=== PATIENT | male | born 1970 | race Caucasian/White ===

== ENCOUNTER 2022-05-10 16:58 | Outpatient (CLI) | payer OTHER, SELFPAY ==
[2022-05-10 17:17] LABS: Influenza Type A Negative (Negative); Influenza Type B Negative (Negative)
== END 2022-05-10 16:59 | disposition home or self-care (01) ==
LOC: LKVREF 16:58
PROVIDERS: Visit Provider Family Medicine
DX: U07.1 COVID-19 (principal); R50.9 Fever, unspecified
CPT/HCPCS: 87804

== ENCOUNTER 2024-08-01 23:29 | Emergency (ER) | payer OTHER, SELFPAY ==
--- OUTSIDE RECORDS SUMMARY | 2024-08-01 23:32 | XMS_ITS | Clinical Summary ---
Author Organization [employer] Address [address] [place] [address] Care Team Providers Care Environmental Permitting Specialist Name Role Phone Chan Lorenzo Primary Care Provider [phone] Source Comments You are receiving this document as you are listed as the primary care provider,follow-up provider, or the patient has been referred to you for consultation.This is in compliance with the Medicare and[facility] EHR Incentive Program,which states Providers who transition their patient to another setting of careor provider of care or refers their patient to another provider of care shouldprovide summary care record for each transition of care or referral. [facility] Allergies Active Allergy Reactions Criticality Noted Date Comments Buprenorphine Anxiety,Other, see comments,Palpitations 06/20/2020 Prochlorperazine Anxiety 01/25/2020 Cyclobenzaprine Anxiety 01/17/2019 Gabapentin Anxiety 08/01/2019 Hydrocodone-Acetaminophen Nausea And Vomiting,Nausea 08/01/2014 Medications Medication Sig Dispensed Refills Start Date End Date Status citalopram (CELEXA) 10 MG tablet Take 10 mg by mouth daily. Active clonazePAM (KLONOPIN) 0.5 MG tablet Take 1 Tablet (0.5 mg) by mouth two times daily as needed for Anxiety (associated with neck pain). Active acetaminophen (TYLENOL) 325 MG tablet Take 2 Tablets by mouth every 4 hours as needed for Pain. 40 Tablet 02/29/2020 Active ondansetron (ZOFRAN) 8 MG tablet Take 1 Tablet by mouth every 8 hours as needed for Nausea. 20 Tablet 02/29/2020 Active Additional Information Patient not taking.Reported on 09/06/2023 lidocaine (ASPERCREAM) 4 % patch Apply 1 Patch to skin daily. Leave on for up to 12 hours in a 24 hour period, then remove. 3 Patch 11/23/2020 Active sildenafil (VIAGRA) 100 MG tablet 1/2 to 1 tab take 30min to 4 hours before sexual activity. Max 100mg/24hr. 07/30/2020 Active traMADol (ULTRAM) 50 MG tablet TAKE 1-2 TABLETS BY MOUTH EVERY DAY AFTER PT/EXERCISE NEEDED FOR PAIN 11/06/2020 Active Meloxicam (MOBIC) 15 MG tablet Take 1 Tablet by mouth daily. 15 Tablet 02/05/2021 Active Additional Information Patient not taking.Reported on 09/06/2023 busPIRone (BUSPAR) 5 MG tablet Take 5 mg by mouth two times a day. 07/10/2021 Active sertraline (ZOLOFT) 50 MG tablet Take 1/2 tab for 1 week increase to 1 tab from 2nd week 09/18/2021 Active acetaminophen-codei ne (TYLENOL NO. 3) 300-30 MG tablet SMARTSI Tablet(s) By Mouth 1 to 3 Times Daily PRN 07/16/2021 Active diazePAM (VALIUM) 5 MG tablet Take 1 Tablet (5 mg) by mouth every 6 hours as needed for Muscle Spasms. 15 Tablet 09/30/2021 Active LORazepam (ATIVAN) 1 MG tablet Take 1 Tablet (1 mg) by mouth two times a day. Active Active Problems Problem Noted Date Diagnosed Date Mechanical low back pain 02/26/2019 Neck pain 02/26/2019 Immunizations Name Administration Dates Next Due Flu Vac (3+ yrs) 06/21/2003 Social History Tobacco Use Types Packs/Day Years Used Date Smoking Tobacco: Never Smokeless Tobacco: Never Alcohol Use Standard Drinks/Week Comments No 0 (1 standard drink = 0.6 oz pur e alcohol) Sex and Gender Information Value Date Recorded Sex Assigned at Not on file Gender Identity Not on file Sexual Orientation Not on file Last Filed Vital Signs Vital Sign Reading Time Taken Comments Blood Pressure 148/95 09/06/2023 4:58 PM DIRECTOR PRIVATE Pulse 77 09/06/2023 4:58 PM DIRECTOR PRIVATE Temperature 36.4 C (97.5 F) 09/06/2023 3:41 PM DIRECTOR PRIVATE Respiratory Rate 18 09/06/2023 3:41 PM DIRECTOR PRIVATE Oxygen Saturation 97% 09/06/2023 4:58 PM DIRECTOR PRIVATE Inhaled Oxygen Concentration - - Weight - - Height - - Body Mass Index - - Plan of Treatment Health Maintenance Due Date Last Done Comments Colon Cancer Screening Plan Due 1971 Hep C Screening (Preventive Services) 1971 PSA Screening Discussion 1971 HIV Screening (Preventive Services) 1987 HepB (1) 1990 Adult Preventive Visit 03/17/2002 03/17/2001 Cholesterol 03/17/2006 03/17/2001 Zoster/Shingles (1 of 2) 2021 COVID-19 Vaccine (3 - season) 2024 10/03/2020, 09/05/2020 Influenza (#1) 2024 03/30/2023, 06/10, 04/20/2019, Additional history exists DTaP/Tdap/Td (2 - Tdap) 10/15/2025 10/16/2015 HepA Aged Out No longer eligi ble based on patient's age to complete this topic Hib Aged Out No longer eligi ble based on patient's age to complete this topic IPV (Polio) Aged Out No longer eligi ble based on patient's age to complete this topic MCV4 Aged Out No longer eligi ble based on patient's age to complete this topic Pneumococcal Aged Out No longer eligi ble based on patient's age to complete this topic Procedures Procedure Name Priority Date/Time Associated Diagnosis Comments CHOLESTEROL (TOTAL) Routine 03/17/2001 1 0:57 AM CDT from Last 3 Months or Most Recently Relevant to Health Maintenance Results * CHOLESTEROL (TOTAL) (03/17/2001 10:57 AM CDT) Cholesterol 141 <200 mg/dl [facility] 03/17/2001 10:5 7 AM CDT 03/17/2001 3:15 PM CDT Alicia Bellamy MD LAB_1 [place], [place] [phone] from Last 3 Months or Most Recently Relevant to Health Maintenance Care Teams Environmental Permitting Specialist Relationship Specialty Start Date End Date Chan Lorenzo MBBS [address] [place] [address] PCP - General Internal Medicine 01/30/19
--- OUTSIDE RECORDS SUMMARY | 2024-08-01 23:32 | XMS_ITS | Referral Summary ---
Author Organization [facility] Address [address] [facility] [address] Care Team Providers Care Portrait Artist Name Role Phone Amber, Mechelle Dai Primary Care Provider Allergies Active Allergy Reactions Criticality Noted Date Comments Buprenorphine Anxiety,Other (See Comments),Palpitations,Shor tness Of Breath High 06/20/2020 Compazine Anxiety Low 07/05/2012 Cyclobenzaprine Nausea,GI Disturbance 5 Gabapentin Anxiety Low 08/01/2019 Hydrocodone-Acetaminophen Nausea,GI Disturbance 12/05/2014 Medications ALPRAZolam (XANAX PO)Indications:ta ke .5mg daily Take 2 mg by mouth daily Active CITALOPRAM HYDROBROMIDE POIndications:estephania e 1/2 tablet Take 20 mg by mouth daily Active Naproxen Sodium (ALEVE PO) Active oxyCODONE-acetami nophen (PERCOCET) 5-325 MG per tablet Take 1-2 tablets by mouth every 6 hours as needed for pain 8 tablet 0 5 Active oxyCODONE-acetami nophen (PERCOCET) 5-325 MG tablet Take 1-2 tablets by mouth every 4 hours as needed for pain 12 tablet 1 Active methocarbamol (ROBAXIN) 500 MG tablet Take 1 tablet (500 mg) by mouth 4 times daily 20 tablet 2 Active predniSONE (DELTASONE) 20 MG tablet Take two tablets (= 40mg) each day for 5 (five) days 10 tablet 2 Active diazepam (VALIUM) 5 MG tablet Take 1 tablet (5 mg) by mouth every 8 hours as needed for muscle spasms or pain 15 tablet 2 Active ketorolac (TORADOL) 10 MG tablet Take 1 tablet (10 mg) by mouth every 6 hours as needed for moderate pain (4-6) 20 tablet 2 Active Active Problems Problem Noted Date Diagnosed Date Cervical strain, initial encounter 11/20/2021 Neck pain 07/05/2012 ABSCESS BUTTOCK 02/03/2007 Immunizations Name Administration Dates Next Due TD,PF 7+ (Tenivac) 09/16/2004 Social History Tobacco Use Types Packs/Day Years Used Date Smoking Tobacco: Never Assessed Alcohol Use Standard Drinks/Week Comments No 0 (1 standard drink = 0.6 oz pur e alcohol) Adolescent Education Answer Date Record ed Getting School Help Needed Not on file 04/08 Sex and Gender Information Value Date Recorded Sex Assigned at Not on file 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 [employer] Gender Identity Not on file Sexual Orientation Not on file 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 Not on fi le Not on file Last Filed Vital Signs Vital Sign Reading Time Taken Comments Blood Pressure 136/107 07/04/2022 2:07 PM [employer] Pulse 81 07/04/2022 2:07 PM [employer] Temperature 36.5 C (97.7 F) 07/04/2022 3:46 PM [employer] Respiratory Rate 18 07/04/2022 2:07 PM [employer] Oxygen Saturation 92% 07/04/2022 4:32 PM [employer] Inhaled Oxygen Concentration - - Weight 106.6 kg (235 lb) 07/04/2022 2:07 PM [employer] Height 188 cm (6' 2) 03/03/2021 9:17 PM CDT Body Mass Index 30.17 03/03/2021 9:17 PM CDT Plan of Treatment Not on file Procedures Procedure Name Priority Date/Time Associated Diagnosis Comments CL AFF A.M.A. LIPID PANEL Routine 09/16/2004 8:36 AM SP[employer] M[employer] Routine Medical Exam BASIC METABOLIC PANEL Routine 07/16/2004 4:45 PM [employer] from Last 3 Months or Most Recently Relevant to Health Maintenance Results * (ABNORMAL) A.M.A. LIPID PANEL (09/16/2004 8:36 AM [employer]) Cholesterol 140 0 - 200 mg/dL [facility] Comment: Cholesterol Reference Range: <200 The NCEP recommends further evaluation of: 1. Patients with cholesterol greater than 200 mg/dL if additional risk factors are present. 2. All patients with a cholesterol greater than 240 mg/dL. Triglycerides 104 0 - 150 mg/dL [facility] HDL Cholesterol 37(L) >40 mg/dL [facility] LDL Cholesterol Calculated 82 0 - 129 mg/dL [facility] VLDL-Cholesterol 21 0 - 30 mg/dL [facility] Cholesterol/HDL Ratio 3.8 0.0 - 5.0 [facility] 09/16/2004 8:36 AM [employer] 09/16/2004 8:37 AM [employer] Massiel Marcos MD LABORATORY Final Result [facility] [address] [place] [address] * (ABNORMAL) Basic metabolic panel (07/16/2004 4:45 PM [employer]) Sodium 141 133 - 144 mmol/L [facility] Potassium 3.6 3.4 - 5.3 mmol/L [facility] Chloride 105 94 - 109 mmol/L [facility] Carbon Dioxide 26 20 - 32 mmol/L [facility] Glucose 111(H) 60 - 110 mg/dL [facility] Urea Nitrogen 19 5 - 24 mg/dL [facility] Creatinine 0.93 0.80 - 1.50 mg/dL [facility] GFR Estimate >80 >60 mL/min/1.7 m2 [facility] GFR Estimate If Black >80 >60 mL/min/1.7 m2 [facility] Calcium 9.1 8.5 - 10.4 mg/dL [facility] Anion Gap 10 6 - 17 mmol/L [facility] 07/16/2004 4:45 PM [employer] 07/16/2004 4:53 PM [employer] us Physician No Ref-Primary LAB - BLOOD ORDERABLES Final Result [facility] from Last 3 Months or Most Recently Relevant to Health Maintenance Insurance [facility] Care Teams Portrait Artist Relationship Specialty Start Date End Date [address] [address] PCP - General 06/16/15
--- OUTSIDE RECORDS SUMMARY | 2024-08-01 23:32 | XMS_ITS | Clinical Summary ---
Author Organization [facility] Address [address] [facility] [address] Care Team Providers Care Crib Clerk Name Role Phone Clinic, Mechelle Dai Primary Care Provider Allergies Active [...] Dates Next Due TD,PF 7+ (Tenivac) 09/16/2004 Family History Medical History Relation Comments Diabetes Maternal Grandmother Breast Cancer No family hx of Cancer - colorectal No family hx of Cerebrovascular Disease No family hx of Heart Disease No family hx of Hypertension No family hx of Lipids No family hx of Osteoporosis No family hx of Prostate Cancer No family hx of Thyroid Disease No family hx of Relation Status Comments Father Alive Maternal Grandfather Maternal Grandmother Mother Alive Paternal Grandfather Paternal Grandmother Sister 1 Alive Sister 2 Alive Social History Tobacco Use Types Packs/Day Years Used Date Smoking Tobacco: Never Assessed Alcohol Use Standard Drinks/Week Comments No 0 (1 standard drink = 0.6 oz pur e alcohol) Adolescent Education Answer Date Record ed Getting School Help Needed Not on file 04/08 Sex and Gender Information Value Date Recorded Sex Assigned at Not on file Legal Sex Male 4:35 AM OUTBOUND TELEMARKETER Gender Identity Not on file Sexual Orientation Not on file 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 Not on fi le Not on file Last Filed Vital Signs Vital Sign Reading Time Taken Comments Blood Pressure 136/107 07/04/2022 2:07 PM OUTBOUND TELEMARKETER Pulse 81 07/04/2022 2:07 PM OUTBOUND TELEMARKETER Temperature 36.5 C (97.7 F) 07/04/2022 3:46 PM OUTBOUND TELEMARKETER Respiratory Rate 18 07/04/2022 2:07 PM OUTBOUND TELEMARKETER Oxygen Saturation 92% 07/04/2022 4:32 PM OUTBOUND TELEMARKETER Inhaled Oxygen Concentration - - Weight 106.6 kg (235 lb) 07/04/2022 2:07 PM OUTBOUND TELEMARKETER Height 188 cm (6' 2) 03/03/2021 9:17 PM CDT Body Mass Index 30.17 03/03/2021 9:17 PM CDT Plan of Treatment Health Maintenance Due Date Last Done Comments ADVANCE CARE PLANNING 1971 ANNUAL REVIEW OF HM ORDERS 1971 CT COLONOGRAPHY 1971 FIT 1971 FLEX SIG 1971 sDNA (Cologuard) 1971 COLONOSCOPY 1981 COLORECTAL CANCER SCREENING 1981 HIV SCREENING 1986 HEPATITIS C SCREENING 1989 HEPATITIS B IMMUNIZATION (1 of 3 - 19+ 3-dose series) 1990 YEARLY PREVENTIVE VISIT 09/16/2005 09/16/2004, 03/17 GLUCOSE 07/16/2007 07/16/2004 LIPID 09/16/2009 09/16/2004 Pneumococcal Vaccine: 50+ Years (1 of 1 - PCV) 2021 ZOSTER IMMUNIZATION (1 of 2) 2021 COVID-19 Vaccine (3 - season) 2024 10/03/2020, 09/05/2020 INFLUENZA VACCINE (#1) 2024 , 04/20/2019, 03/16/2017, Additional history exists PHQ-2 (once per calendar year) 2024 DTAP/TDAP/TD IMMUNIZATION (2 - Td or Tdap) 10/15/2025 10/16/2015, 09/16/2004 RSV VACCINE (1 - 1-dose 75+ series) 2046 HPV IMMUNIZATION Aged Out No longer e ligible based on patient's age to complete this topic MENINGITIS IMMUNIZATION Aged Out No l onger eligible based on patient's age to complete this topic RSV MONOCLONAL ANTIBODY Aged Out No l onger eligible based on patient's age to complete this topic Procedures Procedure Name Priority Date/Time Associated Diagnosis Comments CL AFF A.M.A. LIPID PANEL Routine 09/16/2004 8:36 AM OUTBOUND TELEMARKETER Routine Medical Exam BASIC METABOLIC PANEL Routine 07/16/2004 4:45 PM OUTBOUND TELEMARKETER from Last 3 Months or Most Recently Relevant to Health Maintenance Results * (ABNORMAL) A.M.A. LIPID PANEL (09/16/2004 8:36 AM OUTBOUND TELEMARKETER) Cholesterol 140 0 - 200 mg/dL [facility] Comment: Cholesterol Reference Range: <200 The NCEP recommends further evaluation of: 1. Patients with cholesterol greater than 200 mg/dL if additional risk factors are present. 2. All patients with a cholesterol greater than 240 mg/dL. Triglycerides 104 0 - 150 mg/dL [facility] HDL Cholesterol 37(L) >40 mg/dL [facility] LDL Cholesterol Calculated 82 0 - 129 mg/dL [facility] VLDL-Cholesterol 21 0 - 30 mg/dL [facility] Cholesterol/HDL Ratio 3.8 0.0 - 5.0 [facility] 09/16/2004 8:36 AM OUTBOUND TELEMARKETER 09/16/2004 8:37 AM OUTBOUND TELEMARKETER Massiel Marcos MD LABORATORY Final Result [facility] [address] [place] [address] * (ABNORMAL) Basic metabolic panel (07/16/2004 4:45 PM OUTBOUND TELEMARKETER) Pathologist [facility] Sodium 141 133 - 144 mmol/L [facility] [...] - 17 mmol/L [facility] 07/16/2004 4:45 PM OUTBOUND TELEMARKETER 07/16/2004 4:53 PM OUTBOUND TELEMARKETER us Physician No Ref-Primary LAB - BLOOD ORDERABLES Final Result [facility] from Last 3 Months or Most Recently Relevant to Health Maintenance Insurance [facility] Care Teams Crib Clerk Relationship Specialty Start Date End Date [facility] [address] [place], [place] [id number] PCP - General 06/16/15
--- OUTSIDE RECORDS SUMMARY | 2024-08-01 23:32 | XMS_ITS | Clinical Summary ---
Author Organization [employer] [facility] Address [place], [place] [address] Care Team Providers Care Avionics Installer Name Role Phone Unavailable Primary Care Provider Unavailabl e Allergies Active Allergy Reactions Criticality Noted Date Comments Buprenorphine Hcl Shortness Of Breath,Anxiety,Palp itations,Insomnia 06/20/2020 Prochlorperazine Emotional Disturbance,Other - Describe In Comment Field 05/07/2010 Makes him feel crazy Makes him feel crazy Compazine Cyclobenzaprine Anxiety 01/17/2019 Gabapentin Anxiety 08/01/2019 Hydrocodone-Acetaminophen *Unknown,Nause a Only 08/01/2014 Medications sildenafil citrate (VIAGRA) 100 mg tabletIndications: Erectile dysfunction, unspecified erectile dysfunction type 1/2 to 1 tab take 30min to 4 hours before sexual activity. Max 100mg/24hr. 20 Tablet 3 3 Active traMADoL (ULTRAM) 50 mg tabletIndications: Chronic left shoulder pain,Chronic neck and back pain Take 1 Tablet (50 mg) by mouth three times daily. 60 Tablet 3 Active ondansetron (ZOFRAN ODT) 4 mg disintegrating tabletIndications: Vomiting and diarrhea Place 1 Tablet (4 mg) on the tongue every 8 hours if needed for Nausea/Vomi ting. 12 Tablet 4 Active LORazepam 1 mg tabletIndications: Generalized anxiety disorder,Panic disorder Take 1 Tablet (1 mg) by mouth 2 times daily if needed for Anxiety. 60 Tablet 1 5 Active sertraline (ZOLOFT) 100 mg tabletIndications: Generalized anxiety disorder,Panic disorder,Depressiv e disorder Take 1.5 Tablets (150 mg) by mouth once daily. 45 Tablet 1 5 Active LORazepam 1 mg tabletIndications: Generalized anxiety disorder,Panic disorder Take 1 Tablet (1 mg) by mouth 2 times daily if needed for Anxiety. 60 Tablet 1 4 07/30/19 25 Discontin ued(Reord er (E-cancel not sent)) sertraline (ZOLOFT) 100 mg tabletIndications: Generalized anxiety disorder,Panic disorder,Depressiv e disorder Take 1.5 Tablets (150 mg) by mouth once daily. 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 03/26/2020 Scapular dyskinesis 03/26/2020 Status post cervical spinal fusion C4/5 03/26/20 20 s/p Left shoulder arthroscop ic limited subacromial debridement and partial AC joint resection DOS 09/12/2019 by Ami Ness MD 03/26/2020 Depression 06/07/2017 Controlled substance agreement signed 03/16/2017 PTSD (post-traumatic stress disorder) 10/14/2014 Anxiety 08/01/2014 Radiculopathy of arm 06/25/2010 Resolved Problems Problem Noted Date Diagnosed Date Resolved Date Depressive disorder 11/11/2021 03/25/20 23 Generalized anxiety disorder 11/11/2021 03/25/2023 Anxiety, generalized 02/23/2021 023 Panic disorder 02/23/2021 03/25/2023 COVID-19 virus infection 02/22/2021 Neck pain 03/26/2020 03/25/2023 Chronic left shoulder pain 03/26/2020 0 03/25/2023 Early osteoarthritis of left shoulder 03/26/2020 03/25/2023 Shoulder impingement syndrome, left 08/02/2019 03/25/2023 S/P cervical spinal fusion 06/19/2010 0 03/25/2023 Encounters Date Type Department Care Team Description 06/20/2024 11:30 AM [facility]ARE [facility]IAISON Telemedicine [facility] [address] [place] [address] Keyona Saavedra MD Telehealth 06/20/2024 Travel from Last 3 Months Immunizations Name Administration Dates Next Due COVID-19 vaccine (Moderna 100mcg/0.5mL) PF MDV 10/03/2020,09/05/2020 Influenza, IIV4 03/30/2023,,04/20/2019,03/16,04/23/2016 Td, Preservative Free (age > = 7 Years) 09/16/2004 Tdap 10/16/2015 10/15/2025 Family History Medical History Relation Name Comments Hypertension Father Hypertension Maternal Grandfather Diabetes Maternal Grandmother Other Mother psoriasis Other Other No FH of cancer Hypertension Paternal Grandfather Relation Name Status Comments Father Alive Maternal Grandfather Maternal Grandmother Mother Alive Other Paternal Grandfather Social History Tobacco Use Types Packs/Day Years Used Date Smoking Tobacco: Never Smokeless Tobacco: Never Tobacco Cessation:Counseling Given: No Alcohol Use Standard Drinks/Week Comments No 0 (1 standard drink = 0.6 oz pur e alcohol) PHQ-2 Answer Date Recorded PHQ-2 TOTAL SCORE 2 03/26/2024 Social Connections Answer Date Recorded Frequency of Communication with Friends and Fami ly 0 04/10/2023 Financial Resource Strain Answer Date R ecorded Difficulty of Paying Living Expenses 3 04/10/2023 Difficulty of Paying Living Expenses Not on file 04/10/2023 Food Insecurity Answer Date Recorded Worried About Running Out of Food in the Last Ye ar 1 04/10/2023 Transportation Needs Answer Date Record ed Lack of Transportation (Medical) 1 04/10/2023 Housing Stability Answer Date Recorded Unable to Pay for Housing in the Last Year 1 04/10/2023 Sex and Gender Information Value Date Recorded Sex Assigned at Not on file Legal Sex Male 6:20 AM HEALTHCARE LIAISON Gender Identity Not on file Sexual Orientation Not on file 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 Not on file Not on file Obstetrics History Last Filed Vital Signs Vital Sign Reading Time Taken Comments Blood Pressure 130/87 02/26/2024 2:17 PM CDT Pulse 92 02/26/2024 2:17 PM CDT Temperature 36.9 C (98.5 F) 02/26/2024 2:17 PM CDT Respiratory Rate 24 02/26/2024 2:17 PM CDT Oxygen Saturation 97% 02/26/2024 2:17 PM CDT Inhaled Oxygen Concentration - - Weight 117.9 kg (260 lb) 12/08/2023 3:12 PM CDT Height 188 cm (6' 2) 12/08/2023 3:12 PM CDT Body Mass Index 33.38 12/08/2023 3:12 PM CDT Plan of Treatment Upcoming Encounters Date Type Department Care Team (Late st Contact Info) Description 08/20/2024 1:00 PM [facility]ALTHCARE LIAISON Telemedicine [address] [phone] Keyona Saavedra MD [address] [place] [address] [phone] 09/04/2024 9:30 AM HEALTHCARE LIAISON Office Visit [address] [phone] Keyona Saavedra MD [address] [place] [address] [phone] Health Maintenance Due Date Last Done Comments Colonoscopy through age 75 08/27/2020 08/27/2013 Pneumococcal series for age 50+ (1 of 1 - PCV) 2021 Zoster (shingles) series for age 50+ (1 of 2) 2021 COVID-19 vaccine series ( - season) 2024 10/03/2020, 09/05/2020 Influenza for age 50-64 03/11/2024 03/30/20 23, 06/26/2021, 04/20/2019, Additional history exists BMI (ht and wt on same day) for age 18+ 12/07/2024 12/08/2023, 08/18/2023, 04/10/2023, Additional history exists Depression screening for age 12+ 03/27/2025 03/27/2024, 03/26/2024, 02/07/2024, Additional history exists Tetanus booster 10/15/2025 10/16/2015, 09/16/2004 Lipids for age 45-75 03/30/2028 03/30/2023, 09/02/2017, 10/16/2015, Additional history exists Tdap Completed 10/16/2015 HIV for age 15-65 Completed 03/30/2023 Hepatitis C screening for ag e 18-79 Completed 03/30/2023 Goals Goal Patient Goal Type Associated Problems Recent Progress Patient-Stated? Author BLOOD PRESSURE - MAINTAINS BP less than 140/90 Blood Pressure Rachel Ceron MD Medical Devices Implanted Type Area Stile Ripsaw Operator Device Identifier Shelf Expiration Date Model / Serial / Lot [employer] Lasr [id number] Fee - [id number] Implanted:Qty: 1 on 05/08/2010 at [facility] [employer] 11/26/2012 [id number]# / / [id number] Description:c4 - c5 Plate Gcp 25mm W/Beads [employer] - [id number] Implanted:Qty: 1 on 05/08/2010 at [facility] [employer] 11/07/2012 [id number] 5# / / [id number] Screw Gcp 3mmx13 W/Beads - [id number] Implanted:Qty: 3 on 05/08/2010 at [facility] [employer] 04/09/2013 [id number] 3# / / [id number] Screw Gcp 3mmx13 W/Beads - [id number] Implanted:Qty: 1 on 05/08/2010 at [facility] [employer] 11/08/2012 [id number] 3# / / [id number] Procedures Procedure Name Priority Date/Time Associated Diagnosis Comments ANTI HIV 1/2 Routine 03/30/2023 8:36 AM CDT Health care maintenance ANTI HCV Routine 03/30/2023 8:36 AM CDT Health care maintenance LIPID PANEL W REFLEX MEASURED LDL Routine 03/30/2023 8:36 AM CDT Health care maintenance SCAN-COLONOSCOPY 08/27/2013 12:0 0 AM HEALTHCARE LIAISON from Last 3 Months or Most Recently Relevant to Health Maintenance Results * (ABNORMAL) LIPID PANEL W REFLEX MEASURED LDL (03/30/2023 8:36 AM CDT) CHOLESTEROL,TOTAL 165 100 - 199 mg/dL 03/30/2023 1:33 PM CDT [facility] Comment: Cholesterol, Total Reference Ranges Desirable <200 mg/dL Borderline 200-239 mg/dL High >=240 mg/dL TRIGLYCERIDES 85 <150 mg/dL 03/30/2023 1:33 PM CDT [facility] HDL CHOLESTEROL 39(L) >40 mg/dL 1:33 PM CDT [facility] NON-HDL CHOLESTEROL 126 <145 mg/dl 03/30/2023 1:33 PM CDT [facility] CHOL/HDL RATIO 4.23 <4.50 03/30/2023 1:33 PM CDT [facility] LDL CHOLESTEROL 109 <=130 mg/dL 03/30/2023 1:33 PM CDT [facility] VLDL CHOLESTEROL 17 <=30 mg/dL 03/30/2023 1:33 PM CDT [facility] PROVIDER ORDERED STATUS FASTING 03/30/2023 1:33 PM CDT [facility] Blood BLOOD SPECIMEN / Unknown Venipuncture / Unknown 03/30/2023 8:36 AM CDT 03/30/2023 8:40 AM CDT Chan RINCON CHEMISTRY Final Resul t [facility] [address] [place] [address], * ANTI HCV (03/30/2023 8:36 AM CDT) HEPATITIS C ANTIBODY Non-Reacti ve Non-React jessica 03/31/2023 9:21 AM CDT [facility] Comment:Please note, per www .CDC.gov: If a patient is known to be at high risk of HCV infection, or is symptomatic, and the physician's suspicion of HCV infection is high, HCV RNA testing is often employed and is of diagnostic value, even after an initial negative anti-HCV test result. Blood BLOOD SPECIMEN / Unknown Venipuncture / Unknown 03/30/2023 8:36 AM CDT 03/30/2023 8:40 AM CDT Chan RINCON SEND OUTS Final Resul t Performing Organization Address City/[facility]/ZIP Co de Phone Number [facility] SENDOUT [place]NAL ZIP [phone] [place] [address] * ANTI HIV 1/2 (03/30/2023 8:36 AM CDT) HIV-1/HIV-2 SCREEN Non-Reacti ve Non-Reacti ve 03/30/2023 6:48 PM CDT [facility] Comment:HIV-1 p24 and HIV-1/ HIV-2 Ab Not Detected. Blood BLOOD SPECIMEN / Unknown Venipuncture / Unknown 03/30/2023 8:36 AM CDT 03/30/2023 8:40 AM CDT Chan RINCON SEND OUTS Final Resul t Performing Organization Address City/[facility] Co de Phone Number [facility] [address] [place] [address], * SCAN-COLONOSCOPY (08/27/2013 12:00 AM HEALTHCARE LIAISON) Narrative 08/27/2013 12:00 AM HEALTHCARE LIAISON Procedure Note Scanner - 08/27/2013 12:00 AM CST us Scanner OTHER Final Result from Last 3 Months or Most Recently Relevant to Health Maintenance Insurance [facility] [id number] [place] [address] Advance Directives Documents on File Type Date Recorded Patient Medical Psychotherapist Expl anation Treatment Guidelines 06/26/2021 * Full Code (Latest Code Status on File) Date Activated Date Inactivated Comments 09/12/2019 11:28 AM 09/12/2019 7:11 PM * Full Code Date Activated Date Inactivated Comments 05/08/2010 9:14 AM 05/10/2010 10:41 PM
[2024-08-01 23:52] VITALS: BP 132/82; PULSE 109; RESP 18; TEMP 37; O2SAT 98; BMI 32.1
[2024-08-02 00:39] LABS: Basophils Absolute Auto 0.01 K/uL (0.00-0.30); Basophils Percent Auto 0.1 % (0.0-3.0); Eosinophils Absolute Auto 0.01 K/uL (0.00-0.50); Eosinophils Percent Auto 0.1 % (0.0-7.0); Hematocrit 45.1 % (37.0-53.0); Hemoglobin* 15.4 gm/dL (13.5-17.5); Immature Granulocytes Abs Auto 0.01 K/uL (0.00-0.30); Immature Granulocytes Pct Auto 0.1 %; Lymphocytes Percent Auto 2.8 % (20-44); Mean Corpuscular HGB Conc 34 gm/dL (32-36); Mean Corpuscular Hemoglobin 31 pg (26-34); Mean Corpuscular Volume 91 fL (80-100); Monocytes Percent Auto 4.5 % (0.0-11.0); Neutrophils Percent Auto 92.4 % (42.0-72.0); Platelet Count* 210 K/uL (140-440); RDW Coefficient of Variation % 12.6 % (11.5-15.5); Red Blood Count 4.95 m/uL (4.30-5.90); White Blood Count* 10.61 K/uL (4.50-11.00)
[2024-08-02] MEDS: 0.9 % SODIUM CHLORIDE 1000 ml 1,000 ML IV (01:01)
[2024-08-02] MEDS: ONDANSETRON 2 MG/ML inj 4 MG IVP (01:01)
[2024-08-02 01:03] LABS: Albumin* 4.7 g/dL (3.3-5.0)
[2024-08-02 01:04] LABS: Chloride* 106 mmol/L (96-114); Potassium* 3.7 mmol/L (3.6-5.1); Sodium* 137 mmol/L (135-149)
[2024-08-02 01:06] LABS: Anion Gap 10 mEq/L (7-15); Aspartate Amino Transferase* 27 U/L (12-35); Bilirubin Direct* 0.3 mg/dL (0.0-0.5); Bilirubin Total* 1.3 mg/dL (0.1-1.5); Blood Urea Nitrogen* 23 mg/dL (7-30); Carbon Dioxide* 21 mmol/L (20-32); Creatinine* 0.8 mg/dL (0.5-1.5); Est. Creatinine Clearance* 124.16; Estimated Glomerular Filt Rate 106 ml/min
[2024-08-02 01:07] LABS: Alanine Aminotransferase* 29 U/L (4-50); Alkaline Phosphatase* 107 U/L (40-150); Calcium* 9.5 mg/dL (8.4-10.6); Glucose* 136 mg/dL (60-115); Lipase* 55 U/L (23-300)
[2024-08-02 01:13] LABS: Slide Review Reflex No
[2024-08-02 01:21] LABS: PCR FLU A Negative PCR FLU A (Negative); PCR FLU B Negative PCR FLU B (Negative); PCR RSV Negative PCR RSV (Negative); SARS PCR* Negative SARS-CoV-2 (Negative)
[2024-08-02] MEDS: LORazepam 2 MG/ML inj 1 MG IVP (01:47)
--- NOTE | 2024-08-02 02:38 | ED_ITS ---
HPI - Nausea/Vomiting/Diarrhea General Date Seen: 08/02/24 Chief complaint: Nausea/Vomiting Stated complaint: vomiting/diarrhea Time Seen by Provider: 08/02/24 00:11 Source: patient and family Mode of arrival: ambulatory Limitations: no limitations History of Present Illness HPI Narrative: Patient is a 54-year-old male who is in his usual state of good health until late this afternoon. He started having nausea and vomiting and has thrown up numerous times including once in the lobby here. He has also had several loose stools. No blood in his vomit or in his stool. No fevers or chills. He complains of abdominal achiness but no severe pain. He does acknowledge some anxiety. He has chronic neck pain and follows at [facility] [place]. He works at [employer]. No ill encounters that he is aware of. No runny nose or cough. Related Data Home Medications ?Medication ?Instructions ?Recorded ?Confirmed lorazepam 1 mg tablet 1 mg PO PRN 05/10/22 05/10/22 sertraline 100 mg tablet 100 mg PO QDAY 05/10/22 05/10/22 Previous Rx's ?Medication ?Instructions ?Recorded ketoconazole 2 % topical cream 1 applic topical BID #30 grams 05/10/22 ondansetron 8 mg disintegrating 8 mg PO Q8H PRN nausea and 08/02/24 tablet vomiting #15 tabs Allergies Allergy/AdvReac Type Severity Reaction Status Date / Time prochlorperazine (From Allergy Mild Anxiety Verified 08/01/24 23:55 Compazine) acetaminophen (From Vicodin) AdvReac Mild Nausea Verified 08/01/24 23:55 hydrocodone (From Vicodin) AdvReac Mild Nausea Verified 08/01/24 23:55 Review of Systems Narrative: Review of systems is outlined above otherwise noted to be negative. PFSH PFS Social History Smoking Status: Never smoker Exam Narrative: Exam Narrative: Vitals noted. He does not appear dehydrated. HEENT: Conjunctiva clear. Tympanic membranes are pearly white bilaterally. Posterior pharynx is clear without erythema or exudate. Neck is supple without adenopathy, thyromegaly, carotid bruit. Lungs: Clear to auscultation in all manzanares. No wheezes, rales, rhonchi. Heart: Regular rate and rhythm without murmur. Abdomen: Soft with mild diffuse tenderness. No guarding, rigidity, rebound. Bowel sounds are normal. No palpable masses. Extremities: No cyanosis or edema. Good distal pulses. Skin: No abnormalities noted of the exposed skin. Neurologic: Anxious, Awake, alert, fully oriented. Neurologic exam is nonfocal. Const: Vital Signs, click to edit/add: Vital Signs - 24 hr 08/01/24 23:52 Temperature 98.6 F Pulse Rate [Right Pulse Oximeter] 109 H Respiratory Rate 18 Blood Pressure [Ri ght Upper Arm] 132/82 Pulse Oximetry 98 Oxygen Delivery Me thod Room Air Course Course ED Course: Patient was seen and examined. He is anxious and moaning because of his nausea and pain. He is given a L of normal saline, Zofran 4 mg IV, lorazepam 1 mg IV. His symptoms improved dramatically. He had no vomiting or diarrhea since he was roomed. Triple swab is negative. CBC is unremarkable, BMP is unremarkable, LFTs are normal. Lipase is normal. Reevaluation(s) Reevaluation #1: Patient is feeling better after the IV fluids and is anxious for discharge. Vital Signs Vital signs: Initial Vital Signs Temperature 98.6 F 08/01/24 23:52 Temperature Source Temporal Artery Scan 08/01/24 23:52 Pulse Rate 109 H 08/01/24 23:52 Pulse Rhythm Regular 08/01/24 23:52 Pulse Strength 3+ Normal 08/01/24 23:52 Respiratory Rate 18 08/01/24 23:52 Blood Pressure 132/82 08/01/24 23:52 Blood Pressure Mean 98 08/01/24 23:52 Blood Pressure Position Sitting 08/01/24 23:52 Pulse Oximetry 98 08/01/24 23:52 Oxygen Delivery Method Room Air 08/01/24 23:52 Vital Signs Temperature 98.6 F 08/01/24 23:52 Pulse Rate 109 H 08/01/24 23:52 Respiratory Rate 18 08/01/24 23:52 Blood Pressure 132/82 08/01/24 23:52 Pulse Oximetry 98 08/01/24 23:52 Oxygen Delivery Method Room Air 08/01/24 23:52 Temperature 98.6 F 08/01/24 23:52 Pulse Rate 109 H 08/01/24 23:52 Respiratory Rate 18 08/01/24 23:52 Blood Pressure 132/82 08/01/24 23:52 Pulse Oximetry 98 08/01/24 23:52 Oxygen Delivery Method Room Air 08/01/24 23:52 Medications Administered Medications: Discontinued Medications Generic Name Dose Route Start Last Admin Trade Name Papa PRN Reason Stop Dose Admin Sodium Chloride 1,000 mls @ 1,000 mls/hr 08/02/24 00:20 08/02/24 01:01 0.9 % Sodium Chloride 1000 Ml IV 08/02/24 01:19 1,000 mls/hr .Q1H SHAGGY Administration Lorazepam 1 mg 08/02/24 01:32 08/02/24 01:47 Lorazepam 2 Mg/Ml Inj IVP 08/02/24 01:33 1 mg ONCE ONE Administration Ondansetron HCl 4 mg 08/02/24 00:47 08/02/24 01:01 Ondansetron 2 Mg/Ml Inj IVP 08/02/24 00:48 4 mg ONCE ONE Administration MDM - Nausea/Vomiting/Diarrhea Lab Data Labs: Lab Results 08/01/24 08/02/24 Range/Units 23:52 00:37 WBC 10.61 (4.50-11.00) K/uL RBC 4.95 (4.30-5.90) m/uL Hgb 15.4 (13.5-17.5) gm/dL Hct 45.1 (37.0-53.0) % MCV 91 (80-100) fL MCH 31 (26-34) pg MCHC 34 (32-36) gm/dL RDW Coeff of Víctor 12.6 (11.5-15.5) % Plt Count 210 (140-440) K/uL Neut % (Auto) 92.4 H (42.0-72.0) % Lymph % (Auto) 2.8 L (20-44) % Dooly % (Auto) 4.5 (0.0-11.0) % Eos % (Auto) 0.1 (0.0-7.0) % Baso % (Auto) 0.1 (0.0-3.0) % Neut # (Auto) 9.80 H (1.7-7.0) K/uL Lymph # (Auto) 0.30 L (0.90-2.90) K/uL Dooly # (Auto) 0.50 (0.00-0.90) K/UL Eos # (Auto) 0.01 (0.00-0.50) K/uL Baso # (Auto) 0.01 (0.00-0.30) K/uL Abs Immat Gran (auto) 0.01 (0.00-0.30) K/uL Imm/Tot Granulo (auto) 0.1 % Sodium 137 (135-149) mmol/L Potassium 3.7 (3.6-5.1) mmol/L Chloride 106 (96-114) mmol/L Carbon Dioxide 21 (20-32) mmol/L Anion Gap 10 (7-15) mEq/L BUN 23 (7-30) mg/dL Creatinine 0.8 (0.5-1.5) mg/dL Estimated Creat Clear 124.16 Estimated GFR 106 ml/min Glucose 136 H (60-115) mg/dL Calcium 9.5 (8.4-10.6) mg/dL Total Bilirubin 1.3 (0.1-1.5) mg/dL Direct Bilirubin 0.3 (0.0-0.5) mg/dL AST 27 (12-35) U/L ALT 29 (4-50) U/L Alkaline Phosphatase 107 (40-150) U/L Total Protein 7.0 (6.0-8.3) g/dL Albumin 4.7 (3.3-5.0) g/dL Lipase 55 (23-300) U/L SARS-CoV-2 (PCR) Negative SARS-CoV-2 (Negative) Influenza Type A (PCR) Negative PCR FLU A (Negative) Influenza Type B (PCR) Negative PCR FLU B (Negative) RSV (PCR) Negative PCR RSV (Negative) Discharge Plan Discharge Clinical Impression: Gastroenteritis Patient Disposition: Home, Self-Care Condition: Improved Instructions: Gastroenteritis (ED) Additional Instructions: Clear liquids in frequent small amounts. Advance diet slowly as tolerated. Ty lenol or Tramadol for pain/abdominal cramping. Zofran for nausea. No work or Tuesday. Follow up with your PCP if no better in 3 days. Activity Level: No Restrictions Discharge Diet: Regular Prescriptions: New ondansetron 8 mg tablet,disintegrating 8 mg PO Q8H PRN (Reason: nausea and vomiting) Qty: 15 0RF No Action lorazepam 1 mg tablet 1 mg PO PRN sertraline 100 mg tablet 100 mg PO QDAY ketoconazole 2 % cream 1 applic topical BID Qty: 30 1RF Follow Up/Referrals: Provider,Not a Local [Primary Care Provider] - Stand Alone Forms: [place] Info Instructions
== END 2024-08-02 01:55 | disposition home or self-care (01) ==
PROVIDERS: Emergency Provider Family Medicine
DX: K52.9 Noninfective gastroenteritis and colitis, unspecified (principal)
CPT/HCPCS: 36415; 80048; 80076; 83690; 85025; 87631; 96374; 96375; 99283; J2060; J2405; J7030